=== PATIENT | male | born 1990 | race Caucasian/White ===

== ENCOUNTER 2024-02-19 10:26 | Emergency (ER) | payer OTHER, SELFPAY ==
[2024-02-19 10:31] VITALS: BP 140/89
[2024-02-19 11:37] VITALS: BP 134/92
[2024-02-19 11:58] LABS: % Eosinophils 5.7 % (0-6); % Immature Granulocytes 0.3 % (0-0.5); % Lymphocytes 32.7 % (20.5-51.1); % Monocytes 7.5 % (1.7-9.3); % Neutrophils 52.8 % (42.2-75.2); Absolute Basophils 0.1 10^3/uL (0-0.2); Absolute Eosinophils 0.4 10^3/uL (0-0.7); Absolute Lymphocytes 2.4 10^3/uL (1.2-3.4); Absolute Monocytes 0.5 10^3/uL (0.1-0.6); Absolute Neutrophils 3.8 10^3/uL (1.4-6.5); Hematocrit 44.5 % (39.0-52.0); Hemoglobin 15.3 g/dL (13.0-18.0); Mean Corp Hgb Conc. 34.4 g/dL (33.0-37.0); Mean Corpuscular Hgb 30.8 pg (27.0-31.0); Mean Corpuscular Volume 89.5 fL (80.0-94.0); Mean Platelet Volume 10.5 fL (7.4-10.4); Nucleated Red Blood Cells % 0 % (-); Platelet Count 214 10^3/uL (130-400); Red Blood Cell Count 4.97 10^6/uL (4.70-6.10); Red Cell Dist. Width 12.3 % (11.5-14.5); White Blood Cell Count 7.2 10^3/uL (4.8-10.8)
[2024-02-19 12:00] VITALS: BP 112/78
[2024-02-19 12:14] LABS: ALT (SGPT) 28 U/L (0-50); AST (SGOT) 41 U/L (17-59); Albumin 5.2 g/dl (3.5-5.0); Alkaline Phosphatase 58 U/L (38-126); Blood Urea Nitrogen 16 mg/dl (9-20); Calcium 9.9 mg/dl (8.4-10.2); Carbon Dioxide 25 mmol/L (22-30); Chloride 101 mmol/L (98-107); Glucose 91 mg/dl (70-99); Potassium 4.6 mmol/L (3.5-5.1); Sodium 133 mmol/L (135-145); Total Bilirubin 1.4 mg/dl (0.2-1.3); Total Protein 7.9 g/dl (6.3-8.2); eGFR > 60.00
[2024-02-19 12:23] LABS: Troponin I < 0.012 ng/ml
--- NOTE | 2024-02-19 13:00 | ED.GENMED ---
History of Present Illness
General
Chief Complaint: Chest Pain
Source: patient
Exam Limitations: none
Time Seen by Provider: 02/19/24 11:13
Nursing documentation reviewed up to this point in time: agreed with
Travel History
Have you had any contact with someone who has COVID-19?: No
Do you have any symptoms of coronavirus? Fever > 100 degrees, chills, cough, shortness of breath, sore throat, loss of taste or smell, muscle aches, or headache?: No
History of Present Illness
History of Present Illness:
33-year-old male past medical history of SVT, ADHD presenting emergency department today with chest discomfort for the past 1.5 weeks. Patient rates that the pain a 2/10 in severity. Patient states that his pain is worse in the morning at a 2 out of
10 and decreases to 1 out of 10 later in the day. Patient mainly feels pain in the middle of his chest, will occasionally radiate to left side. Patient states that he takes a really deep breath, he notices discomfort more. Patient denies any
trauma to the chest wall, denies any recent long distance travel, denies any family history of blood clots, palpitations, denies any shortness of breath, abdominal pain, nausea, vomiting. Patient denies any lightheadedness, dizziness. Patient
denies any headache. Patient states that he came in today because he was concerned about his family history of congenital heart disease in his grandfather and high blood pressure and his father. Patient states that he is very active and does
aerobic training along with strength training multiple times a week.
Past History
Past History
ED Past Medical History: Other (ablation for SVT)
ED Past Surgical History: None
Social History
Tobacco: Non-smoker
Alcohol: Occasional
Living: with family
Review of Systems
Review of Systems
All Other Systems: ROS reviewed and negative except as documented in HPI and ROS
Constitutional: Reports no symptoms
EENT: Reports no symptoms
Respiratory: Reports no symptoms
ABD/GI: Reports no symptoms
: Reports no symptoms
Skin: Reports no symptoms
Neurological: Reports no symptoms
Endocrine: Reports no symptoms
Hematologic/Lymphatic: Reports no symptoms
Psychiatric: Reports no symptoms
Phy Exam
Physical Exam
Physical Exam:
Vitals: Patient's vital signs are stable
General: Patient is well-appearing in no acute distress
Head: Normocephalic, atraumatic
Skin: Warm and dry, no rashes or lesions
Cardiac: Regular rate and rhythm, no murmurs. No tenderness palpation of the external chest wall.
Peripheral vascular: 2+ dorsalis pedis pulses bilaterally, 2+ radial pulses bilaterally.
Pulm: Normal respiratory effort, no wheezes, rales, rhonchi.
Neuro: AAOx3, CN II-XII intact, no focal neurologic defeciets.
Scores
Heart Score for Chest Pain Patients
STEMI patient?: No
History: Slightly or Non-Suspicious
ECG: Normal
Age: </= 45 years
Risk Factors: No Risk Factors
Troponin: </= Normal Limit
Heart Score for Chest Pain Patients: 0
Heart Score Risk: 2.5% MACE over next 6 weeks
Course
Orders/Labs/Results
Orders:
Orders
02/19/24 10:28
Electrocardiogram (*1) Urgent
Reason for Study: Chest Pain
02/19/24 10:29
EKG- Treatment ONCE
02/19/24 11:47
Complete Blood Count/With Diff Urgent
Comprehensive Metabolic Panel Urgent
Troponin I Urgent
02/19/24 13:12
CR Chest - 2 Views Urgent
Comment:
Reason For Exam: chest pain
02/19/24 13:16
D-Dimer Urgent
Abnormal Lab Results
02/19/24
11:47
MPV 10.5 H fL
(7.4-10.4)
Sodium 133 L mmol/L
(135-145)
Total Bilirubin 1.4 H mg/dl
(0.2-1.3)
Albumin 5.2 H g/dl
(3.5-5.0)
02/19/24 11:47
02/19/24 11:47
Vital Signs
Initial and Last Documented VS:
Initial Vital Signs
Temp Pulse Resp BP Pulse Ox
98.8 F 68 20 140/89 97
02/19/24 10:31 02/19/24 10:31 02/19/24 10:31 02/19/24 10:31 02/19/24 10:31
Last Documented Vital Signs
Temp Pulse Resp BP Pulse Ox
98.8 F 68 16 115/65 100
02/19/24 10:31 02/19/24 13:17 02/19/24 13:17 02/19/24 14:01 02/19/24 13:17
MDM/Problems Addressed
Differential Diagnosis Includes:
ddx differentials include costochondritis, ACS, pneumothorax, musculoskeletal sprain/strain
MDM/Problems Addressed:
chest discomfort
Chronic conditions affecting care: Other (SVT s/p ablation, ADHD )
*Critical Care Note
Total Time (30-74mins, 75-104mins- exclusive of procedures): Not Applicable
Patient Management
Escalation/DeEscalation of care consider admission/obs:
33-year-old male past medical history of SVT, ADHD presenting emergency department today with chest discomfort for the past 1.5 weeks. Patient rates that the pain a 2/10 in severity. Patient lifts weights daily. Patient has significant history of
cardiac disease in his family, has personal history of SVT, and he is especially concerned that his discomfort. Here in emergency department, patient CBC and CMP are unremarkable, his D-dimer is normal. His chest x-ray shows no active
cardiopulmonary disease. Troponin is not elevated. I suspect his symptoms are likely secondary to musculoskeletal sprain/strain. However, considering his family history of cardiac disease, we will give patient referral for timber repairer.
ED Attending Note
-
Portions of this chart may have been created with voice recognition software.� Occasional wrong word or��sound alike� substitutions may have occurred due to the inherent limitations of voice recognition software.
Discharge Plan
Departure
Patient Disposition: Home (Routine Discharge)
Date of Disposition: 02/19/24
Time of Disposition: 13:47
Patient with high blood pressure during this ER visit?: Yes
Condition: Good
Discharge Problem:
Chest discomfort
Instructions: Chest Pain (DC), BLOOD PRESSURE
Prescriptions:
No Action
No Current Medications
Referrals:
Robert Ko MD [Family Provider] -
Carlos Harmon MD [Active] - Call in 1-3 days for appt
Activity Restrictions/Additional Instructions:
I have given you a referral to see timber repairer. Please call office tomorrow to schedule an appointment.
Your blood pressure was high today. It is important to see a family doctor once a year to follow this. High blood pressure is important cardiac risk factor.
You try alternating Tylenol and Advil for your pain, or use ice. Please not exceed 1200 mg a day of ibuprofen and 4 g of acetaminophen a day.
Please return to emergency department should you experience acute worsening of your symptoms, shortness of breath, dizziness, lightheadedness, or other concerning signs or symptoms.
Interventions
Interventions:
*Risk Screen - Suicide Last Done: 02/19/24 11:49
*General Assessment Last Done: 02/19/24 11:49
*Neglect/Abuse Screening Last Done: 02/19/24 11:49
ED- Fall Risk Assessment Last Done: 02/19/24 14:06
*ED COVID-19 Vaccine History Last Done: 02/19/24 11:49
*Nursing Disposition Last Done: 02/19/24 14:06
ED- Cardiac Assessment Last Done: 02/19/24 11:44
Discharge Date and Time
Discharge Date/Time: 02/19/24 14:06
[2024-02-19 13:43] LABS: D-Dimer < 0.27 ug/mlFEU (0.00-0.50)
[2024-02-19 14:01] VITALS: BP 115/65
== END 2024-02-19 14:06 | disposition home or self-care (01) ==
LOC: EMR 10:26
PROVIDERS: Physician Assistant; EMERGENCY PHYSICIAN Emergency Medicine; FAMILY PHYSICIAN Family Medicine
DX: R07.89 Other chest pain (principal); R03.0 Elevated blood-pressure reading, without diagnosis of hypertension; I47.10 Supraventricular tachycardia, unspecified; Z82.49 Family history of ischemic heart disease and other diseases of the circulatory system
CPT/HCPCS: 99285; 71046; 80053; 84484; 85025; 85379; 93005